=== PATIENT | male | born 1950 | race Caucasian/White ===

== ENCOUNTER 2016-06-27 10:37 | Outpatient (CLI) | payer BC | END 2016-06-27 10:38 | disposition home or self-care (01) | DX: M17.12 Unilateral primary osteoarthritis, left knee (principal) ==

== ENCOUNTER 2020-10-27 07:10 | Outpatient (CLI) | payer MEDICARE, OTHER ==
[2020-10-27 15:06] LABS: BASOPHILS % (AUTO) 0.6 %; EOSINOPHILS # (AUTO) 0.3 10^3/uL (0.0-0.7); EOSINOPHILS % (AUTO) 5.6 %; HCT - HEMATOCRIT 41.3 % (42.0-52.0); HGB - HEMOGLOBIN 13.5 g/dL (14.0-18.0); LYMPHOCYTES # (AUTO) 1.1 10^3/uL (1.5-3.5); LYMPHOCYTES % (AUTO) 24.4 %; MEAN CORPUSCULAR HEMOGLOBIN 30.2 pg (27.0-31.0); MEAN CORPUSCULAR HGB CONC 32.7 g/dL (32.0-36.0); MEAN CORPUSCULAR VOLUME 92.4 fL (80.0-94.0); MEAN PLATELET VOLUME 9.3 fL (7.4-11.4); MONOCYTES # (AUTO) 0.5 10^3/uL (0.0-1.0); MONOCYTES % (AUTO) 11.6 %; NEUTROPHILS # (AUTO) 2.7 10^3/uL (1.5-6.6); NEUTROPHILS % (AUTO) 57.4 %; PLT - PLATELET COUNT 245 10^3/uL (130-450); RED BLOOD COUNT 4.47 10^6/uL (4.70-6.10); WHITE BLOOD COUNT 4.6 x10^3/uL (4.8-10.8)
[2020-10-27 15:28] LABS: ALBUMIN 3.9 g/dL (3.2-5.5); ALBUMIN/GLOBULIN RATIO 1.3 (1.0-2.2); ALKALINE PHOSPHATASE 55 IU/L (42-121); ALT ALANINE AMINOTRANSFERASE 22 IU/L (10-60); AST ASPARTATE AMINOTRANSFERASE 22 IU/L (10-42); BUN - BLOOD UREA NITROGEN 20 mg/dL (6-20); CARBON DIOXIDE - CO2 28 mmol/L (21-32); CHLORIDE 104 mmol/L (101-111); CHOL/HDL RATIO 4.3 (<5.0); CHOLESTEROL 307 mg/dL; CREATININE 0.6 mg/dL (0.6-1.2); GFR - MDRD 134 (>89); GLUCOSE 106 mg/dL (70-100); HDL CHOLESTEROL 72 mg/dL; LDL CHOLESTEROL,CALCULATED 217 mg/dL; POTASSIUM 3.7 mmol/L (3.5-5.0); SODIUM 140 mmol/L (135-145); TOTAL PROTEIN 6.8 g/dL (6.7-8.2); TRIGLYCERIDES 88 mg/dL; VLDL CHOLESTEROL 18 mg/dL
[2020-10-27 15:30] LABS: PSA TOTAL 1.63 ng/mL (0.000-2.000)
[2020-10-27 15:35] LABS: THYROID STIMULATING HORMONE 0.9 uIU/mL (0.34-5.60)
[2020-10-27 15:36] LABS: CRP HIGH SENSITIVITY < 0.5 mg/L; FREE T3 3.68 pg/mL (2.5-3.9)
[2020-10-27 15:37] LABS: FREE T4 (FREE THYROXINE) 1.04 ng/dL (0.58-1.64)
[2020-10-27 15:42] LABS: FERRITIN 118.6 ng/mL (23.9-336.2)
[2020-10-27 16:49] LABS: ESTIMATED AVERAGE GLUCOSE 105 mg/dL (70-100); HEMOGLOBIN A1c% 5.3 % (4.27-6.07)
[2020-10-29 13:20] LABS: HOMOCYSTEINE 5.8 umol/L (<11.4)
== END 2020-10-27 07:11 | disposition home or self-care (01) ==
LOC: LAB.S 07:10
PROVIDERS: ATTEND Family Medicine
DX: E78.5 Hyperlipidemia, unspecified (principal); I10 Essential (primary) hypertension; E03.9 Hypothyroidism, unspecified; R53.83 Other fatigue; R73.09 Other abnormal glucose; E55.9 Vitamin D deficiency, unspecified
CPT/HCPCS: 36415; 80053; 80061; 82306; 82626; 82728; 83036; 83090; 83721; 84153; 84439; 84443; 84480; 84481; 84482; 85025; 86141

== ENCOUNTER 2021-04-14 08:25 | Day surgery (SDC) | payer MEDICARE, OTHER ==
[2021-04-14] MEDS ORDERED: LACTATED RINGERS 1,000 ML IV ONE ×2 (09:04→10:03)
--- NOTE | 2021-04-14 09:09 | ANESTHESIA ---
Pre-Anesthesia VS, & Labs - Diagnosis hx colon polyps - Procedure colonoscopy Vital Signs: Temp Pulse Resp BP Pulse Ox 36.1 C L 55 L 12 120/88 H 99 04/14/21 08:59 04/14/21 08:59 04/14/21 08:59 04/14/21 08:59 04/14/21 08:59 Height: 5 ft 10 in Weight (kg): 70.4 kg Body Mass Index: 22.2 BMI Classification: Healthy weight - NPO >8 hours - Lab Results Lab results reviewed: Yes Home Medications and Allergies Home Medications: Ambulatory Orders Atenolol [Tenormin] 50 mg PO DAILY 04/13/21 Cholecalciferol (Vitamin D3) [Vitamin D3] 1,250 mcg PO DAILY 04/13/21 Levothyroxine Sodium [Levothyroxine] 50 mcg PO DAILY 04/13/21 Multivitamin 1 each PO DAILY 04/13/21 Multivitamin-Min/Herbal No.315 [Adrenal Cooling Machine Operator Capsule] 1 each PO DAILY 04/13/21 Prasterone (Dhea)/Calcium Carb [Dhea Tablet] 1 each PO DAILY 04/13/21 Finasteride [Proscar] 5 mg PO DAILY 11/12/12 Atenolol [Tenormin] 50 mg PO DAILY 04/13/21 Cholecalciferol (Vitamin D3) [Vitamin D3] 1,250 mcg PO DAILY 04/13/21 Levothyroxine Sodium [Levothyroxine] 50 mcg PO DAILY 04/13/21 Multivitamin 1 each PO DAILY 04/13/21 Multivitamin-Min/Herbal No.315 [Adrenal Cooling Machine Operator Capsule] 1 each PO DAILY 04/13/21 Prasterone (Dhea)/Calcium Carb [Dhea Tablet] 1 each PO DAILY 04/13/21 Allergies/Adverse Reactions: Allergies Allergy/AdvReac Type Severity Reaction Status Date / Time No Known Drug Allergies Allergy Verified 11/12/12 20:07 Anes History & Medical History - Anesthetic History Anesthesia Complications: reports: No previous complications Family history of Anesthesia Complications: Denies Family history of Malignant Hyperthermia: Denies - Medical History Cardiovascular: reports: Hypertension, High cholesterol Pulmonary: reports: None Gastrointestinal: reports: None Urinary: reports: Benign prostate hypertrophy Endocrine/Autoimmune: reports: HyPOthyroidism Skin: reports: None Smoking Status: Never smoker - Surgical History General: reports: Colonoscopy Eyes Ears Nose Throat (EENT): reports: Tonsil/Adenoidectomy Exam General: Alert, Oriented x3, Cooperative Dental: WNL Mouth Openin Fingerbreadth Neck Mobility: Normal Mallampati classification: II Thyromental Distance: 4-6 cm Respiratory: Lungs clear, Normal breath sounds, No respiratory distress Cardiovascular: Regular rate Neurological: Normal speech Mental/Cognitive Status: Alert/Oriented X3, Normal for patient Plan Anesthesia Type: Total IV Consent for Procedure(s) Verified and Reviewed: Yes Code Status: Attempt Resuscitation ASA classification: 2-Mild systemic disease Is this case an emergency?: No
[2021-04-14] MEDS ORDERED: PROPOFOL 200 MG/20 ML VIAL IVP ONE ×2 (09:18→09:35)
[2021-04-14] MEDS ORDERED: fentaNYL 100 MCG/2 ML VIAL ONE (09:18)
[2021-04-14] MEDS ORDERED: MIDAZOLAM 2 MG/2 ML VIAL ONE (09:18)
[2021-04-14] MEDS ORDERED: ePHEDrine 50 MG/ML VIAL IVP ONE (09:47)
[2021-04-14 10:21] VITALS: BP 116/83
--- NOTE | 2021-04-14 13:08 | ANESTHESIA POST OP EVALUATION ---
Anesthesia Post Eval - Post Anesthesia Eval Vitals: Last Vital Signs Temp 36.1 C L 04/14/21 10:20 Pulse 60 04/14/21 10:20 Resp 15 04/14/21 10:20 BP 116/83 H 04/14/21 10:20 Pulse Ox 96 04/14/21 10:20 CV Function Including HR & BP: Stable Pain Control: Satisfactory Nausea & Vomiting: Negative Mental Status: Baseline Respiratory Status: Airway Patent Hydration Status: Satisfactory Anesthesia Complications: None
== END 2021-04-14 08:26 | disposition home or self-care (01) ==
LOC: SDS 08:25
PROVIDERS: ATTEND Surgery
DX: Z12.11 Encounter for screening for malignant neoplasm of colon (principal); K64.8 Other hemorrhoids; K57.30 Diverticulosis of large intestine without perforation or abscess without bleeding; Z86.010 Personal history of colon polyps; Z87.891 Personal history of nicotine dependence
CPT/HCPCS: G0105; J7120

== ENCOUNTER 2022-04-21 10:41 | Outpatient (CLI) | payer MEDICARE, OTHER ==
--- NOTE | 2022-04-21 11:56 | XRAY Report ---
PROCEDURE: Wrist 3 View RT INDICATIONS: XRAY WRIST HAND RIGHT TECHNIQUE: 3 views of the wrist were acquired. COMPARISON: None FINDINGS: Bones: There is a mildly impacted, intra-articular fracture with a lucency obliquely involving the la teral aspect, radial styloid. There is also subtle widening of the scapholunate interval. There are m oderate degenerative changes including joint space loss, osteophytosis and sclerosis at the first car pometacarpal joint. Soft tissues: No suspicious soft tissue calcifications. IMPRESSION: 1. Minimally impacted, intra-articular lateral distal radial fracture. 2. Moderate osteoarthritic changes at the first carpometacarpal joint. Reviewed by: Zenaida Roca MD on 04/21/2022 11:55 AM PST Approved by: Zenaida Roca MD on 04/21/2022 11:55 AM PST Station ID: [id number]
--- NOTE | 2022-04-21 11:59 | XRAY Report ---
PROCEDURE: Hand 3 View RT INDICATIONS: RIGHT HAND PAIN TECHNIQUE: 3 views of the hand(s) acquired. COMPARISON: None FINDINGS: Bones: There is a minimally impacted, intra-articular fracture of the distal radius as well as overly ing the scapholunate interval widening. There are scattered osteoarthritic changes involving the firs t carpometacarpal joint and interphalangeal joints diffusely. Soft tissues: Medial fourth PIP periarticular calcifications. IMPRESSION: 1. Intra-articular distal radius fracture. 2. Scapholunate interval widening may indicate ligamentous injury of uncertain chronicity. Consider M R imaging. 3. Moderate scattered osteoarthritic changes. . Reviewed by: Zenaida Roca MD on 04/21/2022 11:58 AM PST Approved by: Zenaida Roca MD on 04/21/2022 11:58 AM PST Station ID: [id number]
== END 2022-04-21 10:42 | disposition home or self-care (01) ==
LOC: DI.S 10:41
PROVIDERS: ATTEND Family Medicine
DX: S52.571A Other intraarticular fracture of lower end of right radius, initial encounter for closed fracture (principal); M18.11 Unilateral primary osteoarthritis of first carpometacarpal joint, right hand; M19.041 Primary osteoarthritis, right hand

== ENCOUNTER 2022-09-08 07:01 | Outpatient (CLI) | payer MEDICARE, OTHER ==
[2022-09-08 14:14] LABS: BASOPHILS % (AUTO) 0.6 %; EOSINOPHILS # (AUTO) 0.3 10^3/uL (0.0-0.7); EOSINOPHILS % (AUTO) 5.8 %; HCT - HEMATOCRIT 41.2 % (42.0-52.0); HGB - HEMOGLOBIN 13.2 g/dL (14.0-18.0); LYMPHOCYTES # (AUTO) 1.2 10^3/uL (1.5-3.5); LYMPHOCYTES % (AUTO) 22.5 %; MEAN CORPUSCULAR HEMOGLOBIN 29.8 pg (27.0-31.0); MEAN PLATELET VOLUME 9.2 fL (7.4-11.4); MONOCYTES # (AUTO) 0.7 10^3/uL (0.0-1.0); MONOCYTES % (AUTO) 13.1 %; NEUTROPHILS % (AUTO) 57.4 %; PLT - PLATELET COUNT 299 10^3/uL (130-450); RED BLOOD COUNT 4.43 10^6/uL (4.70-6.10); RED CELL DISTRIBUTION WIDTH 12.9 % (12.0-15.0); WHITE BLOOD COUNT 5.2 x10^3/uL (4.8-10.8)
[2022-09-08 14:43] LABS: % IRON SATURATION 35 % (20-50); ALBUMIN 3.8 g/dL (3.2-5.5); ALBUMIN/GLOBULIN RATIO 1.2 (1.0-2.2); ALKALINE PHOSPHATASE 60 IU/L (42-121); ALT ALANINE AMINOTRANSFERASE 21 IU/L (10-60); AST ASPARTATE AMINOTRANSFERASE 24 IU/L (10-42); BILIRUBIN,TOTAL 0.5 mg/dL (0.2-1.0); BUN - BLOOD UREA NITROGEN 22 mg/dL (6-20); CALCIUM 9.3 mg/dL (8.5-10.3); CARBON DIOXIDE - CO2 28 mmol/L (21-32); CHLORIDE 106 mmol/L (101-111); CHOL/HDL RATIO 3.2 (<5.0); CHOLESTEROL 243 mg/dL; CREATININE 0.7 mg/dL (0.6-1.2); CRP HIGH SENSITIVITY 5.8 mg/L; GFR - MDRD 112 (>89); GLUCOSE 97 mg/dL (70-100); HDL CHOLESTEROL 77 mg/dL; IRON 106 ug/dL (45-182); LDL CHOLESTEROL,CALCULATED 155 mg/dL; POTASSIUM 4.2 mmol/L (3.5-5.0); SODIUM 139 mmol/L (135-145); TOTAL IRON BINDING CAPACITY 302 ug/dL (250-450); TRANSFERRIN 216 mg/dL (180-329); TRIGLYCERIDES 53 mg/dL; VLDL CHOLESTEROL 11 mg/dL
[2022-09-08 14:45] LABS: PSA FREE 0.266 ng/mL (0.16-2.81)
[2022-09-08 14:47] LABS: PSA TOTAL 1.887 ng/mL (0.000-2.000)
[2022-09-08 14:53] LABS: THYROID STIMULATING HORMONE 1.54 uIU/mL (0.34-5.60)
[2022-09-08 14:54] LABS: FREE T3 3.33 pg/mL (2.5-3.9)
[2022-09-08 14:59] LABS: FERRITIN 142.9 ng/mL (23.9-336.2)
[2022-09-08 15:01] LABS: ESTIMATED AVERAGE GLUCOSE 117 mg/dL (70-100); HEMOGLOBIN A1c% 5.7 % (4.27-6.07)
== END 2022-09-08 07:02 | disposition home or self-care (01) ==
LOC: LAB.S 07:01
PROVIDERS: ATTEND Family Medicine
DX: E78.5 Hyperlipidemia, unspecified (principal); R53.83 Other fatigue; R73.09 Other abnormal glucose; E03.9 Hypothyroidism, unspecified; E55.9 Vitamin D deficiency, unspecified; N40.1 Benign prostatic hyperplasia with lower urinary tract symptoms; D64.9 Anemia, unspecified
CPT/HCPCS: 36415; 80053; 80061; 82626; 82728; 83036; 83090; 83540; 83721; 84153; 84154; 84439; 84443; 84466; 84480; 84481; 84482; 85025; 86141

== ENCOUNTER 2023-04-21 10:18 | Outpatient (CLI) | payer MEDICARE, OTHER ==
[2023-04-21 14:27] LABS: BASOPHILS % (AUTO) 0.2 %; EOSINOPHILS # (AUTO) 0.1 10^3/uL (0.0-0.7); EOSINOPHILS % (AUTO) 2.3 %; HCT - HEMATOCRIT 41.9 % (42.0-52.0); HGB - HEMOGLOBIN 13.2 g/dL (14.0-18.0); LYMPHOCYTES # (AUTO) 1.3 10^3/uL (1.5-3.5); LYMPHOCYTES % (AUTO) 22.8 %; MEAN CORPUSCULAR HEMOGLOBIN 29.9 pg (27.0-31.0); MEAN CORPUSCULAR HGB CONC 31.5 g/dL (32.0-36.0); MEAN PLATELET VOLUME 9.5 fL (7.4-11.4); MONOCYTES # (AUTO) 0.7 10^3/uL (0.0-1.0); MONOCYTES % (AUTO) 12.9 %; NEUTROPHILS # (AUTO) 3.5 10^3/uL (1.5-6.6); NEUTROPHILS % (AUTO) 61.4 %; PLT - PLATELET COUNT 288 10^3/uL (130-450); RED BLOOD COUNT 4.41 10^6/uL (4.70-6.10); RED CELL DISTRIBUTION WIDTH 12.6 % (12.0-15.0); WHITE BLOOD COUNT 5.7 x10^3/uL (4.8-10.8)
--- NOTE | 2023-04-21 16:34 | XRAY Report ---
PROCEDURE: Lumbar Spine 2 View INDICATIONS: BACK PAIN TECHNIQUE: 3 views of the lumbar spine were acquired. COMPARISON: None. FINDINGS: Bones: 5 [id number] vertebrae are present. There is moderate leftward curvature of the mid lum bar spine. Roughly 5 mm of anterolisthesis of L4 on L5. 4 mm of retrolisthesis of L3 on L4 and L2 on L3. Multilevel disc space narrowing and endplate osteophyte formation, as well as facet hypertrophy. No vertebral body compression fractures. No suspicious bony lesions. Soft tissues: Overlying bowel gas pattern is normal. No suspicious soft tissue calcifications. IMPRESSION: Multilevel degenerative disc and facet disease. No acute fracture. No osseous lesion. If symptoms and/or clinical suspicion for pathology continue, further assessment with repeat plain films , or advanced imaging (e.g., CT, MRI, or bone scan) is recommended for further assessment. Reviewed by: Pawan Posada MD on 04/21/2023 4:33 PM PST Approved by: Pawan Posada MD on 04/21/2023 4:33 PM PST Station ID: [id number]
--- NOTE | 2023-04-21 16:34 | XRAY Report ---
PROCEDURE: Thoracic Spine 2 View INDICATIONS: BACK PAIN TECHNIQUE: 2 views of the thoracic spine were acquired. COMPARISON: None. FINDINGS: Bones: No fractures or dislocations. No suspicious bony lesions. Visualized ribs are intact. Multil evel disc space narrowing and endplate osteophyte formation. Soft tissues: No paravertebral stripe thickening. IMPRESSION: Multilevel degenerative disc and facet disease. No acute fracture. No osseous lesion. If symptoms and /or clinical suspicion for pathology continue, further assessment with repeat plain films, or advance d imaging (e.g., CT, MRI, or bone scan) is recommended for further assessment. Reviewed by: Pawan Posada MD on 04/21/2023 4:33 PM PST Approved by: Pawan Posada MD on 04/21/2023 4:33 PM PST Station ID: [id number]
[2023-04-21 17:04] LABS: THYROID STIMULATING HORMONE 1.4 uIU/mL (0.34-5.60)
[2023-04-21 17:13] LABS: ALBUMIN 4.5 g/dL (3.2-5.5); ALBUMIN/GLOBULIN RATIO 1.8 (1.0-2.2); BILIRUBIN,TOTAL 0.6 mg/dL (0.2-1.0); CALCIUM 9.7 mg/dL (8.5-10.3); CREATININE 0.6 mg/dL (0.6-1.3); CRP HIGH SENSITIVITY 14.2 mg/L; POTASSIUM 4.1 mmol/L (3.5-4.5)
[2023-04-22 04:09] LABS: VITAMIN D 25-HYDROXY 75.3 ng/mL (30.0-100.0)
== END 2023-04-21 10:19 | disposition home or self-care (01) ==
LOC: DI.S 10:18
PROVIDERS: ATTEND Family Medicine
DX: M47.816 Spondylosis without myelopathy or radiculopathy, lumbar region (principal); M51.36 Other intervertebral disc degeneration, lumbar region; M47.814 Spondylosis without myelopathy or radiculopathy, thoracic region; M51.34 Other intervertebral disc degeneration, thoracic region; R63.4 Abnormal weight loss; R10.0 Acute abdomen; E03.9 Hypothyroidism, unspecified; D64.9 Anemia, unspecified; E55.9 Vitamin D deficiency, unspecified; E78.5 Hyperlipidemia, unspecified
CPT/HCPCS: 36415; 80053; 82306; 82626; 82728; 83090; 83540; 84439; 84443; 84466; 84480; 84481; 84482; 85025; 86141

== ENCOUNTER 2023-11-14 07:21 | Outpatient (CLI) | payer MEDICARE, OTHER ==
[2023-11-14 14:54] LABS: BASOPHILS # (AUTO) 0.1 10^3/uL (0.0-0.1); BASOPHILS % (AUTO) 0.9 %; EOSINOPHILS # (AUTO) 0.3 10^3/uL (0.0-0.7); EOSINOPHILS % (AUTO) 5.5 %; HCT - HEMATOCRIT 42.3 % (42.0-52.0); HGB - HEMOGLOBIN 13.6 g/dL (14.0-18.0); LYMPHOCYTES # (AUTO) 1.2 10^3/uL (1.5-3.5); LYMPHOCYTES % (AUTO) 19.7 %; MEAN CORPUSCULAR HEMOGLOBIN 29.8 pg (27.0-31.0); MEAN CORPUSCULAR HGB CONC 32.2 g/dL (32.0-36.0); MEAN CORPUSCULAR VOLUME 92.8 fL (80.0-94.0); MEAN PLATELET VOLUME 9.2 fL (7.4-11.4); MONOCYTES # (AUTO) 0.7 10^3/uL (0.0-1.0); MONOCYTES % (AUTO) 11.8 %; NEUTROPHILS # (AUTO) 3.6 10^3/uL (1.5-6.6); NEUTROPHILS % (AUTO) 60.9 %; PLT - PLATELET COUNT 321 10^3/uL (130-450); RED BLOOD COUNT 4.56 10^6/uL (4.70-6.10); RED CELL DISTRIBUTION WIDTH 12.8 % (12.0-15.0); WHITE BLOOD COUNT 5.9 x10^3/uL (4.8-10.8)
[2023-11-14 15:42] LABS: ALBUMIN 4.1 g/dL (3.2-5.5); ALBUMIN/GLOBULIN RATIO 1.4 (1.0-2.2); ALKALINE PHOSPHATASE 57 IU/L (42-121); ALT ALANINE AMINOTRANSFERASE 17 IU/L (10-60); AST ASPARTATE AMINOTRANSFERASE 22 IU/L (10-42); BILIRUBIN,TOTAL 0.7 mg/dL (0.2-1.0); BUN - BLOOD UREA NITROGEN 18 mg/dL (6-20); CALCIUM 9.6 mg/dL (8.5-10.3); CARBON DIOXIDE - CO2 29 mmol/L (21-32); CHLORIDE 103 mmol/L (101-111); CHOL/HDL RATIO 3.3 (<5.0); CHOLESTEROL 249 mg/dL; CREATININE 0.7 mg/dL (0.6-1.3); CRP HIGH SENSITIVITY 1.36 mg/L; GFR - MDRD 111 (>89); GLUCOSE 94 mg/dL (74-104); HDL CHOLESTEROL 75 mg/dL; LDL CHOLESTEROL,CALCULATED 157 mg/dL; LDL/HDL RATIO 2.1 (<3.6); POTASSIUM 4.2 mmol/L (3.5-4.5); SODIUM 137 mmol/L (135-145); TRIGLYCERIDES 87 mg/dL (48-352); VLDL CHOLESTEROL 17 mg/dL
[2023-11-14 15:54] LABS: THYROID STIMULATING HORMONE 1.58 uIU/mL (0.34-5.60)
[2023-11-14 16:01] LABS: FERRITIN 153.1 ng/mL (23.9-336.2)
[2023-11-14 20:47] LABS: ESTIMATED AVERAGE GLUCOSE 111 mg/dL (70-100); HEMOGLOBIN A1c% 5.5 % (4.27-6.07)
== END 2023-11-14 07:22 | disposition home or self-care (01) ==
LOC: LAB.S 07:21
PROVIDERS: ATTEND Family Medicine
DX: E78.5 Hyperlipidemia, unspecified (principal); R53.83 Other fatigue; R73.09 Other abnormal glucose; E03.9 Hypothyroidism, unspecified; E55.9 Vitamin D deficiency, unspecified; N40.1 Benign prostatic hyperplasia with lower urinary tract symptoms; D64.9 Anemia, unspecified
CPT/HCPCS: 36415; 80053; 80061; 82626; 82728; 83036; 83090; 83721; 84153; 84154; 84439; 84443; 84480; 84481; 84482; 85025; 86141